=== PATIENT | female | born 1995 | race African-American/Black ===

== ENCOUNTER 2018-03-31 17:03 | Emergency (ER) | payer OTHER ==
[2018-03-31] MEDS ORDERED: IBUPROFEN 200 MG TAB PO ONE (18:13)
--- NOTE | 2018-03-31 18:49 | RAD REPORT ---
EXAM DESCRIPTION: RAD - Hand Left 3 View - 03/31/2018 6:27 pm CLINICAL HISTORY: hand injury Trauma COMPARISON: No comparisons FINDINGS: No fracture or dislocation appreciated.
[2018-03-31] MEDS ORDERED: TETANUS & DIPHTHERIA TOX,ADULT 0.5 ML VIAL ONE (19:14)
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
== END 2018-03-31 19:28 | disposition home or self-care (01) ==
LOC: ER 17:03
DX: S60.222A Contusion of left hand, initial encounter (principal); Y04.2XXA Assault by strike against or bumped into by another person, initial encounter; Y93.9 Activity, unspecified; Y92.9 Unspecified place or not applicable; Z23 Encounter for immunization
CPT/HCPCS: 90714; 99283

== ENCOUNTER 2018-06-20 14:27 | Emergency (ER) | payer OTHER ==
--- NOTE | 2018-06-20 15:55 | RAD REPORT ---
EXAM DESCRIPTION: RAD - Hand Right 3 View - 06/20/2018 3:13 pm CLINICAL HISTORY: Right hand pain status post injury FINDINGS: No fracture or dislocation is seen.
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
--- NOTE | 2018-06-20 16:39 | EDPHYS ---
Physician Documentation [facility] Name: Yady Rivera Age: 23 yrs Sex: Female : 1995 Arrival Date: 06/20/2018 Time: 14:30 Bed 27 Private MD: ED Physician Richmond Leal HPI: 06/20 16:34 This 23 yrs old Black Female presents to ER via Ambulatory with complaints of Hand snw Injury. 16:34 The patient or guardian reports a contusion, decreased range of motion, pain, swelling. snw The complaints affect the right hand. Context: The problem was sustained at work, resulted from a crush injury, heavy door at work. Onset: The symptoms/episode began/occurred suddenly, yesterday. Associated signs and symptoms: The patient has no apparent associated signs or symptoms. Severity of symptoms: At their worst the symptoms were moderate. The patient has not experienced similar symptoms in the past. It is unknown whether or not the patient has recently seen a physician. 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 - Social history:: Smoking status: Patient uses tobacco products, smokes one-half pack cigarettes per day. - Ebola Screening: : Patient negative for fever greater than or equal to 101.5 degrees Fahrenheit, and additional compatible Ebola Virus Disease symptoms Patient denies exposure to infectious person Patient denies travel to an Ebola-affected area in the 21 days before illness onset No symptoms or risks identified at this time. ROS: 16:33 Constitutional: Negative for fever, chills, and weight loss, Eyes: Negative for injury, snw pain, redness, and discharge, ENT: Negative for injury, pain, and discharge, Neck: Negative for injury, pain, and swelling, Cardiovascular: Negative for chest pain, palpitations, and edema, Respiratory: Negative for shortness of breath, cough, wheezing, and pleuritic chest pain, Abdomen/GI: Negative for abdominal pain, nausea, vomiting, diarrhea, and constipation, Back: Negative for injury and pain, : Negative for injury, bleeding, discharge, and swelling, Skin: Negative for injury, rash, and discoloration, Neuro: Negative for headache, weakness, numbness, tingling, and seizure. 16:33 MS/extremity: Positive for injury or acute deformity, contusion, decreased range of motion, pain, swelling, tenderness, of the right hand, especially right middle fingertip. Exam: 16:32 Constitutional: This is a well developed, well nourished patient who is awake, alert, snw and in no acute distress. Head/Face: Normocephalic, atraumatic. Eyes: Pupils equal round and reactive to light, extra-ocular motions intact. Lids and lashes normal. Conjunctiva and sclera are non-icteric and not injected. Cornea within normal limits. Periorbital areas with no swelling, redness, or edema. ENT: Nares patent. No nasal discharge, no septal abnormalities noted. Tympanic membranes are normal and external auditory canals are clear. Oropharynx with no redness, swelling, or masses, exudates, or evidence of obstruction, uvula midline. Mucous membranes moist. Neck: Trachea midline, no thyromegaly or masses palpated, and no cervical lymphadenopathy. Supple, full range of motion without nuchal rigidity, or vertebral point tenderness. No Meningismus. Chest/axilla: Normal chest wall appearance and motion. Nontender with no deformity. No lesions are appreciated. Cardiovascular: Regular rate and rhythm with a normal S1 and S2. No gallops, murmurs, or rubs. Normal PMI, no JVD. No pulse deficits. Respiratory: Lungs have equal breath sounds bilaterally, clear to auscultation and percussion. No rales, rhonchi or wheezes noted. No increased work of breathing, no retractions or nasal flaring. Abdomen/GI: Soft, non-tender, with normal bowel sounds. No distension or tympany. No guarding or rebound. No evidence of tenderness throughout. Back: No spinal tenderness. No costovertebral tenderness. Full range of motion. Skin: Warm, dry with normal turgor. Normal color with no rashes, no lesions, and no evidence of cellulitis. Neuro: Awake and alert, GCS 15, oriented to person, place, time, and situation. Cranial nerves II-XII grossly intact. Motor strength 5/5 in all extremities. Sensory grossly intact. Cerebellar exam normal. Normal gait. Psych: Awake, alert, with orientation to person, place and time. Behavior, mood, and affect are within normal limits. 16:32 Musculoskeletal/extremity: Extremities: grossly normal except: noted in the right hand: contusion, decreased ROM, tenderness, Circulation is intact in all extremities. Sensation intact. Tendon exam: unable to examine due to patient being uncooperative. Vital Signs: 14:43 BP 133 / 87; Pulse 88; Resp 14; Temp 98.2; Pulse Ox 99% on R/A; Weight 63.5 kg; Height aj 5 ft. 3 in. (160.02 cm); 16:10 BP 118 / 82; Pulse 69; Resp 18; Pulse Ox 100% on R/A; Pain 4/10; aa5 17:10 BP 120 / 70; Pulse 70; Resp 18; Pulse Ox 100% on R/A; Pain 2/10; mg2 14:43 Body Mass Index 24.80 (63.50 kg, 160.02 cm) aj MDM: 16:20 Patient medically screened. snw 16:43 Data reviewed: vital signs, nurses notes. Data interpreted: Pulse oximetry: on room air snw is 100 %. Interpretation: normal. Counseling: I had a detailed discussion with the patient and/or guardian regarding: the historical points, exam findings, and any diagnostic results supporting the discharge/admit diagnosis, the presence of at least one elevated blood pressure reading (>120/80) during this emergency department visit, radiology results, the need for outpatient follow up, to return to the emergency department if symptoms worsen or persist or if there are any questions or concerns that arise at home. Special discussion: Based on the history and exam findings, there is no indication for further emergent testing or inpatient evaluation. I discussed with the patient/guardian the need to see the primary care provider for further evaluation of the symptoms. 06/20 14:45 Order name: XRAY Hand RIGHT 3 View; Complete Time: 16:08 aj 06/20 16:32 Order name: Wrist Splint; Complete Time: 17:04 snw Administered Medications: 17:01 Drug: Motrin 400 mg Route: PO; mg2 17:01 Follow up: Response: No adverse reaction; Medication administered at discharge. mg2 Disposition: 18:35 Co-signature as Attending Physician, Richmond Leal MD I agree with the assessment and kdr plan of care. Disposition: 06/20/18 16:39 Discharged to Home. Impression: Contusion of right hand. - Condition is Stable. - Discharge Instructions: Cast or Splint Care, Adult, Hand Contusion, Wrist Splint. - Prescriptions for Diclofenac Sodium 75 mg Oral Tablet Sustained Release - take 1 tablet by ORAL route 2 times per day; 30 tablet. - Medication Reconciliation Form, Thank You Letter, Antibiotic Education, Prescription Opioid Use, Work release form form. - Follow up: Emergency Department; When: As needed; Reason: Worsening of condition. Follow up: Private Physician; When: 2 - 3 days; Reason: Recheck today's complaints, Continuance of care, Re-evaluation by your physician. Signatures: Dispatcher [employer] EDGisele Valenzuela, RN RN Richmond Colvin MD MD kdr Therrien, Shelly, REGULATORY INTERNSHIP-C REGULATORY INTERNSHIP-Csnw Nathaniel Oconnor RN RN mg2 Corrections: (The following items were deleted from the chart) 17:10 16:39 06/20/2018 16:39 Discharged to Home. Impression: Contusion of right hand. mg2 Condition is Stable. Forms are Medication Reconciliation Form, Thank You Letter, Antibiotic Education, Prescription Opioid Use. Follow up: Emergency Department; When: As needed; Reason: Worsening of condition. Follow up: Private Physician; When: 2 - 3 days; Reason: Recheck today's complaints, Continuance of care, Re-evaluation by your physician. snw
[2018-06-20] MEDS ORDERED: IBUPROFEN 400 MG TAB ONE (17:02)
== END 2018-06-20 17:10 | disposition home or self-care (01) ==
LOC: ER 14:27
DX: S60.221A Contusion of right hand, initial encounter (principal); W23.0XXA Caught, crushed, jammed, or pinched between moving objects, initial encounter; Y93.9 Activity, unspecified; Y92.89 Other specified places as the place of occurrence of the external cause; Y99.8 Other external cause status; F17.210 Nicotine dependence, cigarettes, uncomplicated
CPT/HCPCS: 99284

== ENCOUNTER 2019-06-25 13:32 | Emergency (ER) | payer OTHER, SELFPAY ==
--- OUTSIDE RECORDS SUMMARY | 2019-06-25 13:35 | XMS REPORT ---
:1995 Author Organization [facility] Address [address] [place] [address] [address] [place] [address] Care Team Providers Name Role Phone Unavailable Unavailable Unavailable Problems This patient has no known problems. Allergies, Adverse Reactions, Alerts This patient has no known allergies or adverse reactions. Medications This patient has no known medications.
[2019-06-25 14:25] LABS: Urine Blood TRACE (NEG); Urine Glucose NEGATIVE (NEG); Urine Protein TRACE (NEG); Urine pH 7.5 (5.0-7.0)
[2019-06-25 14:47] LABS: Urine Bacteria >50 /HPF (<20); Urine Culture Reflex Order REFLEXED; Urine Mucus 3+ /HPF (NONE SEEN)
[2019-06-25] MEDS ORDERED: NITROFURAN MACRO 100 MG CAP PO ONE (15:13)
--- NOTE | 2019-06-25 15:57 | RAD REPORT ---
EXAM DESCRIPTION: US - Abdomen Exam Limited - 06/25/2019 3:37 pm CLINICAL HISTORY: mass to left upper abdomen, not eval gb on exam COMPARISON: No comparisons FINDINGS: A prominent muscle versus a small 13 mm soft tissue lesion is detected in the area of inte rest upper aspect of the left abdomen. Further characterization not possible on sonography. If furthe r assessment is clinically desired, CT imaging would be recommended.
--- NOTE | 2019-06-25 17:26 | ER ---
Nurse's Notes [facility] Name: Yady Rivera Age: 24 yrs Sex: Female : 1995 Arrival Date: 06/25/2019 Time: 13:37 Bed 19 Private MD: Diagnosis: Urinary tract infection, site not specified Presentation: 06/25 13:40 Presenting complaint: Patient states: "My control in my arm has been ss since October, and I've been bleeding non stop for the past 3 months, and since it , I have this knot on my side.". Transition of care: patient was not received from another setting of care. Onset of symptoms was October 2018. Risk Assessment: Do you want to hurt yourself or someone else? Patient reports no desire to harm self or others. Initial Sepsis Screen: Does the patient meet any 2 criteria? No. Patient's initial sepsis screen is negative. Does the patient have a suspected source of infection? No. Patient's initial sepsis screen is negative. Care prior to arrival: None. 13:40 Method Of Arrival: Ambulatory ss 13:40 Acuity: CASSIE 4 Triage Assessment: 13:40 General: Appears in no apparent distress. comfortable, Behavior is cooperative, bp appropriate for age, anxious. Pain: Complains of pain in pelvis. EENT: No deficits noted. Cardiovascular: No deficits noted. Respiratory: No deficits noted. GI: No signs and/or symptoms were reported involving the gastrointestinal system. : Reports vaginal bleeding that is moderate flow. Derm: No deficits noted. Musculoskeletal: No deficits noted. 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 - Social history:: Smoking status: Patient uses tobacco products, denies chronic smoking, but will smoke occasionally. - Ebola Screening: : Patient denies exposure to infectious person Patient denies travel to an Ebola-affected area in the 21 days before illness onset. Screenin:08 Abuse screen: Denies threats or abuse. Denies injuries from another. Nutritional bp screening: No deficits noted. Tuberculosis screening: No symptoms or risk factors identified. Fall Risk None identified. Assessment: 13:40 General: SEE TRIAGE NOTE. : Reports vaginal bleeding that is. bp 15:15 Reassessment: PT TO U/S. bp 16:00 Reassessment: PT REQUESTING CONTRACEPTIVE PLANT REMOVAL, EVAL BY ATTENDING PENDING. bp 17:10 Reassessment: ATTENDING AT B/S. bp 17:59 Reassessment: PT D/C HOME AMBULATORY WITH FAMILY, DX WITH UTI. bp 18:00 : Urine is clear. bp Vital Signs: 13:41 BP 111 / 73; Pulse 71; Resp 15; Temp 98.5(TE); Pulse Ox 99% ; Weight 62.14 kg; Height 5 ss ft. 4 in. (162.56 cm); Pain 0/10; 15:00 BP 119 / 75; Pulse 75; Resp 17; Temp 98.5; Pulse Ox 99% ; bp 17:00 BP 115 / 72; Pulse 81; Resp 16; Pulse Ox 99% ; bp 13:41 Body Mass Index 23.52 (62.14 kg, 162.56 cm) ss ED Course: 13:37 Patient arrived in ED. as 13:41 Triage completed. ss 13:41 Arm band placed on right wrist. ss 13:44 Lorenzo Espino, [place] is Primary Nurse. bp 14:01 Nati Lynn FNP-C is PHCP. snw 14:01 Richmond Leal MD is Attending Physician. snw 15:08 Patient has correct armband on for positive identification. Bed in low position. Call bp light in reach. Side rails up X2. 15:52 US Abdomen Limited In Process Unspecified. EDMS 17:59 No provider procedures requiring assistance completed. Patient did not have IV access bp during this emergency room visit. Administered Medications: 15:14 Drug: Macrobid 100 mg Route: PO; bp 15:14 Follow up: Response: No adverse reaction bp Outcome: 17:25 Discharge ordered by . snw 17:59 Discharged to home ambulatory. bp 17:59 Condition: stable 17:59 Discharge instructions given to patient, Instructed on discharge instructions, follow up and referral plans. medication usage, Demonstrated understanding of instructions, follow-up care, medications, Prescriptions given X 2. 18:00 Patient left the ED. bp Signatures: Dispatcher [employer] EDNati Magaña, PROGRAM EVALUATION CONSULTANT-C PROGRAM EVALUATION CONSULTANT-Csnw Dara Mueller Shelby, RN RN ss Lorenzo Espino RN RN bp Corrections: (The following items were deleted from the chart) 17:10 13:40 : bp bp
--- NOTE | 2019-06-25 17:26 | EDPHYS ---
Physician Documentation [facility] Name: Yady Rivera Age: 24 yrs Sex: Female : 1995 Arrival Date: 06/25/2019 Time: 13:37 Bed 19 Private MD: ED Physician Richmond Leal HPI: 06/25 15:21 This 24 yrs old Black Female presents to ER via Ambulatory with complaints of Vaginal snw Bleeding, Lump on Rib. 15:21 The patient presents with vaginal bleeding that is moderate. Associated signs and snw symptoms: The patient has no apparent associated signs or symptoms. Severity of symptoms: At their worst the symptoms were moderate. The patient's method of control includes nexplanon. It is unknown whether or not the patient has had similar symptoms in the past. The patient has not recently seen a physician. pt attributes all her s/s to implant and wants it removed today. Has not gone back to PCP as her medicaid . Pt states this is a medical emergency. Discussed this is not emergent and implants are not removed in ED. 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 - Social history:: Smoking status: Patient uses tobacco products, denies chronic smoking, but will smoke occasionally. - Ebola Screening: : Patient denies exposure to infectious person Patient denies travel to an Ebola-affected area in the 21 days before illness onset. ROS: 15:18 Constitutional: Negative for fever, chills, and weight loss, Eyes: Negative for injury, snw pain, redness, and discharge, ENT: Negative for injury, pain, and discharge, Neck: Negative for injury, pain, and swelling, Cardiovascular: Negative for chest pain, palpitations, and edema, Respiratory: Negative for shortness of breath, cough, wheezing, and pleuritic chest pain, Abdomen/GI: Negative for abdominal pain, nausea, vomiting, diarrhea, and constipation, mass to upper left abdomen Back: Negative for injury and pain, : Negative for injury, discharge, and swelling, + vaginal bleeding since implant . MS/Extremity: Negative for injury and deformity, Skin: Negative for injury, rash, and discoloration, Neuro: Negative for headache, weakness, numbness, tingling, and seizure. Exam: 15:02 Constitutional: This is a well developed, well nourished patient who is awake, alert, snw and in no acute distress. Head/Face: Normocephalic, atraumatic. Eyes: Pupils equal round and reactive to light, extra-ocular motions intact. Lids and lashes normal. Conjunctiva and sclera are non-icteric and not injected. Cornea within normal limits. Periorbital areas with no swelling, redness, or edema. ENT: Nares patent. No nasal discharge, no septal abnormalities noted. Tympanic membranes are normal and external auditory canals are clear. Oropharynx with no redness, swelling, or masses, exudates, or evidence of obstruction, uvula midline. Mucous membranes moist. Neck: Trachea midline, no thyromegaly or masses palpated, and no cervical lymphadenopathy. Supple, full range of motion without nuchal rigidity, or vertebral point tenderness. No Meningismus. Chest/axilla: Normal chest wall appearance and motion. Nontender with no deformity. No lesions are appreciated. Cardiovascular: Regular rate and rhythm with a normal S1 and S2. No gallops, murmurs, or rubs. Normal PMI, no JVD. No pulse deficits. Respiratory: Lungs have equal breath sounds bilaterally, clear to auscultation and percussion. No rales, rhonchi or wheezes noted. No increased work of breathing, no retractions or nasal flaring. 15:02 Abdomen/GI: Inspection: abdomen appears normal, Bowel sounds: normal, Palpation: mass, that is hard, that is tender, approximately 5 cm(s), of the left upper quadrant, pt states she has felt this mass x3 months. Vital Signs: 13:41 BP 111 / 73; Pulse 71; Resp 15; Temp 98.5(TE); Pulse Ox 99% ; Weight 62.14 kg; Height 5 ss ft. 4 in. (162.56 cm); Pain 0/10; 15:00 BP 119 / 75; Pulse 75; Resp 17; Temp 98.5; Pulse Ox 99% ; bp 17:00 BP 115 / 72; Pulse 81; Resp 16; Pulse Ox 99% ; bp 13:41 Body Mass Index 23.52 (62.14 kg, 162.56 cm) ss MDM: 14:53 Patient medically screened. snw 17:33 Data reviewed: vital signs, nurses notes. Data interpreted: Pulse oximetry: on room air snw is 99 %. Interpretation: acceptable. Counseling: I had a detailed discussion with the patient and/or guardian regarding: the historical points, exam findings, and any diagnostic results supporting the discharge/admit diagnosis, lab results, the need for outpatient follow up, an OB/Gyne specialist. Physician consultation: Richmond Leal MD was called at 16:00, was contacted at 16:00, and will see patient in ED. 17:34 Physician consultation: Ben Ospina MD was called at 17:15, was contacted at 17:15, snw regarding consult, patient's condition, need to evaluate the patient as soon as possible. Special discussion: Based on the history and exam findings, there is no indication for further emergent testing or inpatient evaluation. I discussed with the patient/guardian the need to see the OB Gyne specialist for further evaluation of the symptoms. 06/25 14:02 Order name: Urine Microscopic Only; Complete Time: 14:51 snw 06/25 14:18 Order name: Urine Dipstick--Ancillary (enter results); Complete Time: 14:51 eb 06/25 14:18 Order name: Urine --Ancillary (enter results); Complete Time: 14:51 eb 06/25 14:53 Order name: Urine Culture [facility] 06/25 15:02 Order name: US Abdomen Limited; Complete Time: 16:28 snw 06/25 14:02 Order name: Urine Test (obtain specimen); Complete Time: 14:17 snw 06/25 14:02 Order name: Urine Dipstick-Ancillary (obtain specimen); Complete Time: 14:17 snw Administered Medications: 15:14 Drug: Macrobid 100 mg Route: PO; bp 15:14 Follow up: Response: No adverse reaction bp Disposition: 06/25/19 17:25 Discharged to Home. Impression: Urinary tract infection, site not specified. - Condition is Stable. - Discharge Instructions: Abnormal Uterine Bleeding, Urinary Tract Infection, Adult, Rehydration, Adult. - Prescriptions for Macrobid 100 mg Oral Capsule - take 1 capsule by ORAL route every 12 hours for 10 days; 20 capsule. Sprintec (28) 0.25- 35 mg-mcg Oral tablet - take 1 tablet by ORAL route once daily; 28 tablet. - Medication Reconciliation Form, Thank You Letter, Antibiotic Education, Prescription Opioid Use, Work release form form. - Follow up: Private Physician; When: 2 - 3 days; Reason: Recheck today's complaints, Continuance of care, Re-evaluation by your physician. Follow up: Emergency Department; When: As needed; Reason: Worsening of condition. - Notes: Please take first dose tonight and then begin daily tomorrow morning. Please call Dr. Ospina's office for an appointment for implant removal. Addendum: 06/30/2019 09:45 Co-signature as Attending Physician, Richmond Leal MD I agree with the assessment and k dr plan of care. Signatures: Dispatcher [employer] EDRichmond Jimenez MD MD [facility] Nati Lynn, FAIZAN-C SIDEROGRAPHIST-Csnw Laura Beck RN RN ss Lorenzo Espino RN RN bp Corrections: (The following items were deleted from the chart) 06/25 18:00 17:25 06/25/2019 17:25 Discharged to Home. Impression: Urinary tract infection, site bp not specified. Condition is Stable. Forms are Medication Reconciliation Form, Thank You Letter, Antibiotic Education, Prescription Opioid Use. Follow up: Private Physician; When: 2 - 3 days; Reason: Recheck today's complaints, Continuance of care, Re-evaluation by your physician. Follow up: Emergency Department; When: As needed; Reason: Worsening of condition. snw
[2019-06-25 19:29] VITALS: TEMP 98.5; O2SAT 99
[2019-06-25 19:32] VITALS: BP 115/72
== END 2019-06-25 18:00 | disposition home or self-care (01) ==
LOC: ER 13:32
DX: N39.0 Urinary tract infection, site not specified (principal); Z72.0 Tobacco use
CPT/HCPCS: 76705; 81003; 81015; 81025; 87086; 87088; 99283